=== PATIENT | male | born 1960 | race Caucasian/White ===

== ENCOUNTER 2025-05-22 05:47 | Observation (INO) ==
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
[2025-05-22] MEDS: LR 15ML/HR IV SCH (06:32)
[2025-05-22] MEDS ORDERED: LIDOCAINE 2% 2 ML VIAL/AMP(20MG/ML) INFIL ONE ×2 (06:49)
[2025-05-22] MEDS ORDERED: ROCURONIUM BROMIDE 10 MG/ML 5 ML VIAL IV ONE ×2 (06:49)
[2025-05-22] MEDS ORDERED: PROPOFOL IV EMULSION 10 MG/ML 20 ML VIAL IV ONE ×2 (06:49→06:53)
[2025-05-22] MEDS ORDERED: DEXAMETHASONE SOD INJ 4 MG/ML VIAL ONE (06:50)
[2025-05-22] MEDS ORDERED: MIDAZOLAM HCL 1 MG/ML 2ML VIAL ONE (06:50)
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
[2025-05-22] MEDS ORDERED: ATROPINE SULFATE 0.1 MG/ML 10ML SYR IV PRN (07:14)
[2025-05-22] MEDS ORDERED: HYDROmorphone INJ 2 MG/ML SYR/VIAL ONE (09:39)
[2025-05-22] MEDS ORDERED: SUGAMMADEX SODIUM 200 MG/2 ML VIAL IV ONE (09:50)
[2025-05-22] MEDS ORDERED: ONDANSETRON INJ 2 MG/ML 2 ML VIAL ONE (09:56)
[2025-05-22] MEDS: SURGICEL ABSORB HEMOSTAT 2IN X 14IN TOP ONE (09:57)
[2025-05-22] MEDS: TISSEEL FIBRIN SEALANT 4ML TOP ONE (09:58)
[2025-05-22] MEDS: ONDANSETRON INJ 2 MG/ML 2 ML VIAL IV PRN (10:28)
--- NOTE | 2025-05-22 10:30 | Operative Report ---
PG Post Operative Report Pre & Post Diagnosis Operation Date: 05/22/25 07:30 Pre-Op Diagnosis: Cyst of Kidney, Aquired I identified the patient and participated in the time-out.: Yes Procedure Operation Date: 05/22/25 07:30 Actual Procedures p Robotic Assisted Laparoscopic Renal Cyst Decortication - Right(Right) - Martin Roach MD Surgeon Martin Roach MD Head Knitting Machine Fixer NONI Hdz Estimated Blood Loss 5 Findings Consistent with Post-Op Diagnosis Specimens Right renal cyst wall Drains 15 Citizen Of [place] drain to right upper quadrant Mendoza catheter per urethra Anesthesia Type General Complications none Disposition Accompanied Patient To Recovery: Yes Disposition: Recovery Room Indications This is a 64-year-old male followed by urology for renal cysts which have been causing flank pain. He has undergone 2 separate aspirations of his cysts but the fluid reaccumulates causing recurrent pain. He presents for laparoscopic cyst decortication. Description of Procedure The patient was identified and informed consent was obtained. He was marked on the right side and was brought to the operating room where general anesthesia was initiated. He was placed in a flank position with the right side elevated. All pressure points were carefully padded. A timeout was then performed. A surgical marker was used to draw a line approximately 7 cm to the left of the umbilicus, in the mid clavicular area. Anticipated port sites were marked starting approximately 2 fingerbreadths below the costal margin. Subsequent ports were anticipated to be 6 to 7 cm spaced down this line. An incision was made at the second anticipated site, then dissection was carried down to the fascia. A Veress needle was used to obtain access to the peritoneum. Good position was confirmed with a negative aspiration, appropriate drop test and low opening insufflation pressure. The abdomen was then inflated with CO2 to 15 mmHg. The first robotic port was then placed and the camera was inserted. The abdominal cavity was surveyed. There was no injury to intra-abdominal contents. The remaining 3 robotic ports were placed under direct visualization. A 12 mm special ed assistant port was then placed in the midline above the umbilicus. The robot was then docked. I reflected the colon along the white line of Toldt to expose Gerota's fascia. The duodenum was Kocherized. Once the colon was sufficiently reflected, the gonadal vessels and left ureter were identified. These were then dissected cephalad to identify the renal hilum, in case there was bleeding during the decortication. I then turned my attention toward the cyst. The intraoperative ultrasound was introduced and used to survey the upper portion of his right kidney. The cyst was identified. Gerota's fascia was incised and the fat was dissected away to expose the cyst. A safe location was identified using the intraoperative ultrasound and then the cyst was entered using cautery and scissors. There was drainage of straw-colored serous fluid. The opening in the cyst was extended toward the edges of renal parenchyma, trying to get as much of an opening as possible but not involve any of the normal kidney tissue. At the conclusion of this, the opening was approximately 3 cm in diameter. I removed a portion of the cyst wall which was then sent for pathologic analysis. Some of the overlying fat seemed like it was going to sit over the cyst but opening. To prevent any recurrence of cyst if possible, this fat was dissected away. Once the decortication was complete, the abdomen was inspected for meticulous hemostasis. Surgicel was placed near the hilum. The robot was dedocked. A 15 Citizen [place] drain was then placed in position near the cyst. The incisions were then closed. The special ed assistant site was closed using a deep 0 Vicryl suture for the fascia. Skin was closed using running subcuticular 4-0 Monocryl for the extraction site and buried interrupted 4-0 Monocryls for the robot sites. The patient was then awakened from anesthesia and brought to the PACU in stable condition. All sponge and instrument counts were correct at the end of the case. Of note, NONI Hdz, acted as bedside special ed assistant for the majority of the case, helping with initial positioning, access, retraction, dissection and with closing. I attest to the content of the Intraoperative Record and any orders documented therein. Any exceptions are noted below.
[2025-05-22] MEDS: BUPIVACAINE 0.5 % 5 MG/1 ML MPF 30ML VIAL ONE (10:51)
--- NOTE | 2025-05-22 11:13 | Anesthesiology Progress Note ---
Date of Service May 22, 2025 Anesthesia Post Procedure Vital Signs Vital Signs: Temp Pulse Pulse Resp BP Pulse Ox O2 Del Method 05/22/25 11:00 61 16 125/77 97 Nasal Cannula 05/22/25 10:55 36.5 C 64 19 133/83 96 Nasal Cannula 05/22/25 10:45 63 13 122/71 98 Oxymask 05/22/25 10:35 60 13 131/86 94 Oxymask 05/22/25 10:25 61 12 140/87 98 Oxymask 05/22/25 10:19 36.2 C L 66 14 145/87 H 98 Oxymask 05/22/25 06:07 36.5 C 57 L 20 162/99 H 98 Room Air O2 Flow Rate 05/22/25 11:00 2 05/22/25 10:55 2 05/22/25 10:45 4 05/22/25 10:35 3 05/22/25 10:25 9 05/22/25 10:19 9 05/22/25 06:07 Pain Intensity Abdomen: Pain Intensity: 4 Transfer of Care Handoff Completed per policy Notes Mental Status: alert / awake / arousable Patient Amnestic to Procedure: Yes Nausea / Vomiting: adequately controlled Pain: adequately controlled Airway Patency, RR, SpO2: stable & adequate BP & HR: stable & adequate Hydration State: stable & adequate Anesthetic Complications: no major complications apparent
[2025-05-22] MEDS ORDERED: ONDANSETRON INJ 2 MG/ML 2 ML VIAL IV PRN (12:13)
[2025-05-22] MEDS ORDERED: HYDROmorphone INJ 0.5 MG/0.5 ML SYR IV PRN ×2 (12:13)
[2025-05-22] MEDS ORDERED: IBUPROFEN 200 MG TAB PO PRN (12:13)
[2025-05-22] MEDS: SODIUM CHLORIDE 0.9% 1,000 ML IV SCH (12:55)
[2025-05-22] MEDS: ACETAMINOPHEN 325 MG TAB PO SCH (13:29)
[2025-05-22] MEDS: DOCUSATE SODIUM 100 MG CAP PO SCH (20:43)
[2025-05-22] MEDS: PRAVASTATIN SOD 40 MG TAB PO SCH (20:44)
[2025-05-22] MEDS: HEPARIN SOD 5,000 UNIT/0.5 ML VIAL SQ SCH (20:46)
[2025-05-23 00:11] VITALS: RESP 16
[2025-05-23 07:38] VITALS: PULSE 68; TEMP 97.7; O2SAT 97
--- NOTE | 2025-05-23 07:45 | Urology Progress Note ---
Date of Service May 23, 2025 Assessment & Plan (1) Renal cyst, right: (2) Right flank discomfort: Plan 64-year-old male recovering appropriately s/p right renal cyst decortication on 05/22/2025 He is meeting discharge criteria today and we will plan on drain removal and dis charge home Admission and Anticipated Discharge Date Admission Date: May 22, 2025 Subjective S/p cyst decortication on 05/22/2025 Feeling well this morning Tolerating a diet, some nausea last night but better today Has been up and ambulating Voiding well after Mendoza was removed Physical Exam Physical Exam: Well-appearing, NAD Incisions intact with Dermabond in place, appropriate abdominal tenderness, no guarding drain with small amount serosanguineous output Results & Data Vital Signs (Past 12 Hours) Vital Signs Temp Pulse Resp BP Pulse Ox O2 Del Method 05/23/25 07:37 36.5 C 68 16 111/69 97 Room Air 05/23/25 03:14 36.4 C L 80 16 99/62 L 96 Room Air 05/23/25 00:10 36.5 C 72 16 105/76 93 Room Air 05/22/25 20:50 Room Air PG Care Time/CCT Total # of Minutes Spent Total Time Spent with Patient: Total time spent is greater than 50% in coordination of care (as documented) at patient's floor/unit and/or counseling patient: Coding Level of Care Code None Diagnoses Renal cyst, right N28.1 Right flank discomfort R10.9
--- NOTE | 2025-05-23 08:45 | Discharge Summary ---
Date of Service May 23, 2025 Admission HPI Per Admitting Provider This is a 64-year-old male followed by urology for right-sided flank pain seems to be associated with a right renal cyst. He has undergone percutaneous aspiration of the cyst on 2 separate occasions with improvement of his pain, however the cyst tends to reaccumulate and pain recurs. He presents to the OR for laparoscopic robot-assisted right renal cyst decortication. He denies any changes in his health. Principal Diagnosis Right renal cyst Discharge Exam Constitutional well developed and well nourished; no acute distress Respiratory normal respiratory effort; no respiratory distress and no labored breathing Gastrointestinal (Abdomen) Inspection/Auscultation: abdomen normal to inspection Musculoskeletal Head/Neck/Chest: normocephalic Skin Incisions appropriate Neurologic moves all extremities and awake Psychiatric Orientation: alert and oriented x 3 Discharge Data Allergies Allergy/AdvReac Type Severity Reaction Status Date / Time [id number] Reductase AdvReac Intermediate Cramping Verified 05/22/25 06:04 Inhibitor of the Muscles Procedures Performed Operation Date: 05/22/25 07:30 Actual Procedures p Robotic Assisted Laparoscopic Renal Cyst Decortication - Right(Right) - Martin Roach MD Hospital Course (1) Renal cyst, right: (2) Right flank discomfort: Plan 64-year-old male recovering appropriately s/p right renal cyst decortication on 05/22/2025 He is meeting discharge criteria today and we will plan on drain removal and discharge home Total Time Total Time Spent Total Time Spent (In Minutes): 25 Discharge Plan Discharge Items Patient Disposition: Home - Self-Care Reason For Visit: Cyst of Kidney, Aquired Discharge Diagnosis: right renal cyst Activity: Per Instructions section Non-emergency contact: Urologist Call non-emergency contact if: you have any medication questions, your pain is not controlled, your pain is worsening, you have a fever, your wound has increased redness, your wound has increased drainage and your wound pain has increased Follow-up/Referrals: Karin Ramos PA-C [Primary Care Provider] - Diet: Regular Addtl Attending Provider Instructions: The surgery you had was: Robot-assisted laparoscopic renal cyst decortication Please take all medications as prescribed and keep all follow-ups as scheduled. Please call our office at [phone] with any questions, concerns or need to reschedule appointments for any reason. We are happy to assist you. Medications: Take Tylenol every 6 hours for baseline pain control If you are prescribed narcotics such as oxycodone, please take it according to the instructions on the label. Activity/Recovering at home: We recommend having someone with you for the first few days after surgery to help care for you. It is okay to shower tomorrow. Please avoid swimming, bathing or using hot tub until incisions are well healed. Avoid driving until you are not requiring pain medication any further. Walk at least a few times a day. Increase your distance, as you feel able. Stairs in your home are okay. Please avoid strenuous or sexual activity until your follow-up. No lifting anything more than 10 pounds for 6-8 weeks Use a stool softener (i.e. Colace) to prevent constipation, especially the first two weeks post operatively. You should not be straining/pushing to have a bowel movement. Follow-up: We will have you come to the urology office in 3 to 4 weeks for a wound check. Call [facility] at [phone] if you experience: Chest pain or trouble breathing (call [phone] or go to the hospital). Fever of 101F or higher Symptoms of infection at incision site, including redness or swelling, warmth, or bad-smelling drainage Pain that is not controlled with medicines Pending Studies at Discharge: No Stand-Alone Forms: My [facility] [employer], Smoking Cessation Medications and DC Order Prescriptions: Continued tadalafil [Cialis] 5 mg tablet 5 mg PO HS Qty: 90 3RF ibuprofen 200 mg capsule 200 mg PO Q6H PRN (Reason: Pain) pravastatin 80 mg tablet 80 mg PO HS omeprazole 20 mg capsule,delayed release(DR/EC) 20 mg PO HS Discharge Orders: Discharge Order (Routine); Ordered 05/23/25 Ordered By: Tawanna Roque Admission Data Admit Date/Time: 05/22/25 10:19 Attending Provider: Martin Roach Admit Provider: Martin Roach Primary Care Provider: Karin Ramos Coding Level of Care Code 99234 IN/OBS DISCH 30 MIN/LESS Diagnoses Renal cyst, right N28.1 Right flank discomfort R10.9
[2025-05-23 09:30] LABS: Hematocrit (blood only) 37.4 % (42.0-52.0); Hemoglobin 13.1 g/dl (14.0-18.0); Immature Granulocytes # (auto) 0.07 K/uL (0.01-0.20); Immature Granulocytes % (auto) 0.5 %; Mean Corpuscular Hemoglobin 30.6 pg (25.0-34.0); Mean Corpuscular Volume 87.4 fL (80.0-100.0); Platelet Count 191 K/uL (130-400); RDW Standard Deviation 42.2 fL (36.4-46.3); Red Blood Count 4.28 M/uL (4.70-6.10); White Blood Count 13.02 K/ul (4.8-10.8)
[2025-05-23 09:42] LABS: Anion Gap 7.0 (3-11); Blood Urea Nitrogen 20.0 mg/dl (6-23); Calcium 8.7 mg/dl (8.6-10.3); Carbon Dioxide 27.0 mmol/L (21-32); Chloride 105.0 mmol/L (98-107); Creatinine Clr Calc Pharmacy 83.6 ml/min; Glucose 157.0 mg/dl (70-99(Fasting)); Potassium 4.5 mmol/L (3.5-5.1); Sodium 139.0 mmol/L (136-145)
[2025-05-23 10:50] VITALS: BP 122/75
== END 2025-05-23 10:35 | disposition home or self-care (01) | DRG 661 ==
LOC: ASU 05:47 → INTOOBSV 10:19 → 3N 10:19